=== PATIENT | female | born 1995 | race Caucasian/White ===

== ENCOUNTER 2017-05-26 09:45 | Emergency (ER) | payer OTHER ==
[~2017-05-26] VITALS: Ht 157.5 cm; Wt 61.0 kg
[~2017-05-26 09:45] MED LIST: CIPR500T4 PO; FLUO10CA66; LOPE2CAP PO; METH18TA6; METR500T14 PO
[2017-05-26 09:48] VITALS: Ht 157.5 cm; Wt 61.0 kg
[2017-05-26] MEDS ORDERED: NPH10OT LEFT EAR (10:07)
--- NOTE | 2017-05-26 10:39 | ERD ---
ER Documentation Chief Complaint Date/Time DATE: 05/26/17 TIME: 10:37 Chief Complaint left ear pain x 3 days HPI Patient is a 22-year-old female with no medical problems who presents with left- sided ear pain. She says that she was at a shooting range on Thursday and was wearing ear protection. However after the shooting range she said "I felt like I had an ear infection". She has a throbbing pain in the left ear. She has no fevers. She tried ibuprofen which helps. She called her primary doctor but there was no appointment available. Upon review of old medical records this is the patient's fourth visit since 2009. ROS All systems reviewed and are negative except as per history of present illness. Medications Home Meds Active Scripts Neomycin/Polymyxin/Hydrocort* (Cortisporin* Otic) 10 Ml Susp, 4 DROP LEFT EAR QID for 7 Days, EA Prov:JOSE MALAGON MD 05/26/17 Loperamide Hcl* (Imodium*) 2 Mg Capsule, 2 MG PO .WITH EACH DIARRHEA, #20 CAP 4 mg initially, then followed by 2 mg with each loose stool. MAX 8 mg/day Prov:MELIDA ALVARENGA NP 05/04/15 Metronidazole* (Metronidazole*) 500 Mg Tablet, 500 MG PO Q8 for 5 Days, TAB Prov:MELIDA ALVARENGA NP 05/04/15 Ciprofloxacin Hcl* (Ciprofloxacin Hcl*) 500 Mg Tablet, 500 MG PO BID for 3 Days , TAB Prov:MELIDA ALVARENGA NP 05/04/15 Reported Medications Methylphenidate Hcl* (Concerta*) 18 Mg/Bottle Tab.osm.24 12/29/09 Fluoxetine Hcl* (Prozac*) 10 Mg Capsule 12/29/09 Allergies Allergies: Coded Allergies: No Known Allergies (Verified Allergy, Mild, 05/04/15) PMhx/Soc History of Surgery: No Hx Neurological Disorder: No Hx Respiratory Disorders: No Hx Cardiac Disorders: No Hx Psychiatric Problems: Yes (depression) Hx Miscellaneous Medical Probl: Yes (adhd) Hx Alcohol Use: No Hx Substance Use: No Hx Tobacco Use: No Smoking Status: Never smoker FmHx Family History: diabetes Physical Exam Vitals Vital Signs Date Time Temp Pulse Resp B/P Pulse Ox O2 Delivery O2 Flow Rate FiO2 05/26/17 09:48 97.6 85 18 129/62 98 Physical Exam Const: No acute distress Head: Atraumatic Eyes: Normal Conjunctiva ENT: Inflammation within the left ear canal but no obvious pus or erythema to the tympanic membrane Neck: Full range of motion..~ No meningismus. Resp: Clear to auscultation bilaterally Cardio: Regular rate and rhythm, no murmurs Abd: Soft, non tender, non distended. Normal bowel sounds Skin: No petechiae or rashes Back: No midline or flank tenderness Ext: No cyanosis, or edema Neur: Awake and alert Psych: Normal Mood and Affect Procedures/MDM Patient is a 22-year-old female who presents with left-sided ear pain. She has mild inflammation within the left ear canal. There is no sign of otitis media. I see no other sign of serious bacterial infection. The patient will be given Cortisporin otic drops for the ear. She can continue to take ibuprofen. I do not believe she needs oral antibiotics. The patient will be discharged and can follow-up with her primary doctor within 1 week. Departure Diagnosis: Primary Impression: Left ear pain Condition: Fair Patient Instructions: Common Middle Ear Problems Referrals: Dr. Travis Additional Instructions: Call your primary care doctor TOMORROW for an appointment during the next 1 WEEK.Tell the medical secretary that you were referred from this facility.See the doctor sooner or return here if your condition worsens before your appointment time. JOSE MALAGON MD May 26, 2017 10:39
== END 2017-05-26 10:31 | disposition home or self-care (01) ==
LOC: FTE 09:45
DX: H92.02 Otalgia, left ear (principal)
CPT/HCPCS: 99283